=== PATIENT | female | born 1990 | race Caucasian/White ===

== ENCOUNTER 2022-04-24 10:37 | Outpatient (CLI) | payer BC, SELFPAY ==
--- NOTE | 2022-04-24 10:45 | CRLHL7_ITS ---
For Patients: As a result of the Cures Act, medical imaging exams and procedure reports are released immediately into your electronic medical record. You may view this report before your referring provider. If you have questions, please contact your health care provider. DIGITAL DIAGNOSTIC LEFT MAMMOGRAM USING TOMOSYNTHESIS AND COMPUTER-AIDED DETECTION LEFT BREAST ULTRASOUND CLINICAL HISTORY: LEFT breast lump. COMPARISON: None. TECHNIQUE: Digital LEFT mammogram in four projections. Tomosynthesis and CAD utilized. Real-time ultrasound imaging of LEFT breast with imaging documentation. BREAST COMPOSITION: The breast is extremely dense, which lowers the sensitivity of mammography. FINDINGS: 3D implant-displaced CC/MLO LEFT breast mammogram images submitted along with 2D non implant-displaced LEFT breast mammogram images. Nodular density is present adjacent to the LEFT nipple corresponding to the area of concern. The LEFT breast implant is intact. No adenopathy or architectural distortion. No suspicious calcifications. Targeted LEFT breast ultrasound performed at 3 o`clock 1 cm from the nipple. In this location there is a simple circumscribed anechoic cyst with increased through-transmission measuring 0.7 x 0.5 x 0.7 cm. IMPRESSION: 7 millimeters simple cyst LEFT breast 3 o`clock 1 cm from the nipple. No evidence of malignancy. RECOMMENDATIONS: Clinical follow-up. Age appropriate screening mammography. Results and recommendations discussed with the patient. BI-RADS Category 2: Benign A lay language report of this examination will be provided to the patient. Dictated by Catrachito Rao MD @ 04/24/2022 12:05:58 PM arj/Dictated by: Catrachito Rao MD @ 04/24/2022 12:05:00 PM (Electronically Signed)
--- NOTE | 2022-04-24 11:15 | CRLHL7_ITS ---
For Patients: As a result of the Cures Act, medical imaging exams and procedure reports are released immediately into your electronic medical record. You may view this report before your referring provider. If you have questions, please contact your health care provider. PLEASE SEE DIGITAL DIAGNOSTIC LEFT MAMMOGRAM PERFORMED SAME DAY CRL:rose rose/Dictated by: Catrachito Rao MD @ 04/24/2022 12:06:00 PM (Electronically Signed)
== END 2022-04-24 10:38 | disposition home or self-care (01) ==
LOC: MAMMO 10:37
PROVIDERS: Visit Provider Physician Assistant
DX: N63.20 Unspecified lump in the left breast, unspecified quadrant (principal); N60.02 Solitary cyst of left breast
CPT/HCPCS: 76642; 77065; 77067; G0279

== ENCOUNTER 2024-02-10 13:02 | Outpatient (CLI) | payer BC, SELFPAY ==
--- NOTE | 2024-02-10 13:00 | CRLHL7_ITS ---
For Patients: As a result of the Century Cures Act, medical imaging exams and procedure reports are released immediately into your electronic medical record. You may view this report before your referring provider. If you have questions, please contact your health care provider. INDICATION: First trimester scan, establish dates. COMPARISON: None. TECHNIQUE: Real-time lockwood-scale imaging of the pelvis was performed. FINDINGS: Sonographic imaging demonstrates a single living intrauterine gestation. The embryo demonstrates a regular cardiac rate measuring 185 beats per minute. The embryo`s crown-rump length measurement of 2.1 cm corresponds to a gestational age of 8 weeks 5 days with a sonographic due date of 09/16/2024. There is a normal-appearing yolk sac. There are no gross abnormalities noted within the embryo at this early state of development. The gestational sac has a normal appearance. There is a 2.0 x 1.5 x 1.0 cm left-sided perigestational hemorrhage. The amount of fluid within the sac appears appropriate for gestational age. The cervix is closed. The myometrium appears normal. The ovaries are of normal size. Corpus luteal cyst on the right. There are no suspicious fluid collections noted in the cul-de-sac. IMPRESSION: Single living intrauterine with sonographic gestational age 8 weeks 5 days and sonographic due date 09/16/2024. Left-sided subchorionic hemorrhage measures 2.0 x 1.5 x 1.0 cm. Dictated by Catrachito Rao MD @ 02/11/2024 12:24:02 PM (Electronically Signed)
== END 2024-02-10 13:03 | disposition home or self-care (01) ==
LOC: US 13:02
PROVIDERS: PCP Family Medicine; Visit Provider Physician Assistant
DX: Z34.91 Encounter for supervision of normal pregnancy, unspecified, first trimester (principal); O20.9 Hemorrhage in early pregnancy, unspecified; Z3A.08 8 weeks gestation of pregnancy
CPT/HCPCS: 76817

== ENCOUNTER 2024-02-10 13:11 | Outpatient (CLI) | payer BC, SELFPAY ==
[2024-02-10 21:26] LABS: Chlamydia DNA Amplified* NOT DETECTED (No Detected); GC DNA Amplified* NOT DETECTED (No Detected)
[2024-02-13 16:28] LABS: HPV Source Cervical; HPV, High Risk by TMA Not Detected
== END 2024-02-10 13:12 | disposition home or self-care (01) ==
PROVIDERS: PCP Family Medicine; Visit Provider Obstetrics & Gynecology
DX: Z34.91 Encounter for supervision of normal pregnancy, unspecified, first trimester (principal); Z12.4 Encounter for screening for malignant neoplasm of cervix; Z3A.08 8 weeks gestation of pregnancy
CPT/HCPCS: 83021; 86592; 86703; 86704; 86706; 86762; 86787; 86803; 86850; 86900; 86901; 87086; 87340; 87491; 87591; 87624; 87625; 88141; 88142

== ENCOUNTER 2024-04-30 12:58 | Outpatient (CLI) | payer BC, SELFPAY ==
--- NOTE | 2024-04-30 13:00 | CRLHL7_ITS ---
For Patients: As a result of the 21st Century Cures Act, medical imaging exams and procedure reports are released immediately into your electronic medical record. You may view this report before your referring provider. If you have questions, please contact your health care provider. OB ULTRASOUND SURVEY LMP: 12/13/2023. GUS by LMP: 09/18/2024. GA: 19 w, 6 d. INDICATION: Supervision of normal . TECHNIQUE: Real time lockwood scale imaging of the fetus was performed. Evaluate anatomy. Transabdominal and transvaginal. position: Multiple positions. Cervix: Visualized. Technique: Transabdominal and Transvaginal. Length of closed cervix: 5.0 cm. Placenta/cord: Anterior. Technique: Transabdominal. Transvaginal. Placenta tip to internal OS: 1.2 cm. Umbilical Cord: 3-vessel cord. Placenta insertion: Eccentric. Amniotic Fluid: 4.4 cm SDP (greater than/equal to: 2- less than 8 cm). SURVEY: Observed Structures. Calvarium/Spine: Cerebellum: 2.0 cm, 20 w 4 d. Cisterna Magna: 3.6 mm. Nuchal Fold: 4.4 mm. Lateral Ventricle: 5.3 mm. CSP: Yes. Midline Falx: Yes. Choroid Plexus: Yes. Spine: Yes. Abdomen: Stomach: Yes. Abd Cord Insertion: Yes. Urinary Bladder: Yes. Kidneys: Yes. Diaphragm: Yes. Face: Nose/lips: Yes. Orbital view: Yes. Profile: Yes. Limbs: Upper Extremities: Yes. Lower Extremities: Yes. Hands: Yes. Feet: Yes. Vascular: 4-Chamber Heart: Yes. LVOT: Yes. RVOT: Yes. 3VV: Yes. 3VTV: Yes. BPD: 4.4 cm. 19 w, 2 d, 27 percent. HC: 17.0 cm. 19 w, 4 d, 30 percent. AC: 15.3 cm. 20 w, 3 d, 65 percent. FL: 3.2 cm. 20 w, 0 d, 49 percent. FL/AC ratio: 21.10 percent. HC/AC ratio: 1.11. heart rate: 149 bpm. age by this US: 20 w, 0 d. GUS by this US: 09/17/2024. EFW: 336.41 g. Weight: 12 oz. Percentile by GUS: 64 percent. IMPRESSION: 1. Concordant of clinical and sonographic dating. 2. Normal anatomic survey. 3. Anterior placental edge located 1.2 cm from the internal cervical os, confirmed with transvaginal imaging. Possible circumvallate placenta at the inferior aspect. Third trimester follow-up recommended at 28 weeks. Catrachito Rao M.D. Diagnostic Radiologist [email or web address] [employer] [email or web address] DSM/rose jj/Dictated by: Catrachito Rao MD @ 04/30/2024 3:32:00 PM (Electronically Signed)
== END 2024-04-30 12:59 | disposition home or self-care (01) ==
LOC: US 12:58
PROVIDERS: PCP Family Medicine; Visit Provider Obstetrics & Gynecology
DX: Z34.92 Encounter for supervision of normal pregnancy, unspecified, second trimester (principal); Z3A.19 19 weeks gestation of pregnancy
CPT/HCPCS: 76805; 76817

== ENCOUNTER 2024-07-01 12:21 | Outpatient (CLI) | payer BC, SELFPAY ==
--- NOTE | 2024-07-01 12:15 | CRLHL7_ITS ---
For Patients: As a result of the Century Cures Act, medical imaging exams and procedure reports are released immediately into your electronic medical record. You may view this report before your referring provider. If you have questions, please contact your health care provider. OB ULTRASOUND GUS by LMP or US: 09/18/2024. GA: 28 w, 5 d. Single. Comparison: Ultrasound 04/30/2024, 02/10/2024. INDICATION: Follow-up. TECHNIQUE: Real time grayscale imaging of the fetus was performed. Transabdominal. CERVIX: Visualized. POSITIONING: Breech. AMNIOTIC FLUID: 5.3 cm. SDP (N: greater than 2 x 1 cm) PLACENTA: Technique: Transabdominal. PLACENTA POSITION: Anterior. DOPPLER: heart rate: 135 bpm. BIOMETRY: BPD: 7 cm. 28 w, 1 d, 22 percent. HC: 26.1 cm. 28 w, 2 d, 11 percent. AC: 24.8 cm. 29 w, 0 d, 53 percent. FL: 5.5 cm. 29 w, 0 d, 41 percent. FL/AC ratio: 22.10 percent. HC/AC ratio: 1.05. EFW: 1297 g. Weight: 2 lbs, 14 oz. age by this US: 28 w, 6 d. GUS by this US: 09/17/2024. Percentile by GUS: 43 percent. IMPRESSION: 1. Sonographic gestational age 28 weeks 6 days with sonographic due date 09/17/2024. Good correlation with dates. Normal interval growth. 2. Estimated weight 43rd percentile. Abdominal circumference 53rd percentile. 3. Anterior placenta. Placental edge, 6.8 cm from the internal cervical os. Placental morphology appears normal without evidence of circumvallate. Catrachito Rao M.D. Diagnostic Radiologist [email or web address] CAROLYN/rose rose/Dictated by: Catrachito Rao MD @ 07/02/2024 8:11:00 AM (Electronically Signed)
== END 2024-07-01 12:22 | disposition home or self-care (01) ==
LOC: US 12:22
PROVIDERS: PCP Family Medicine; Visit Provider Obstetrics & Gynecology
DX: O35.03X0 Maternal care for (suspected) central nervous system malformation or damage in fetus, choroid plexus cysts, not applicable or unspecified (principal); Z3A.28 28 weeks gestation of pregnancy
CPT/HCPCS: 76816

== ENCOUNTER 2024-07-01 12:27 | Outpatient (CLI) | payer BC, SELFPAY | END 2024-07-01 12:28 | disposition home or self-care (01) | LOC: NFLDREF 07-07 01:55 | PROVIDERS: PCP Family Medicine; Referring Provider Family Medicine; Visit Provider Obstetrics & Gynecology | DX: Z34.83 Encounter for supervision of other normal pregnancy, third trimester (principal) | CPT/HCPCS: 86592 ==

== ENCOUNTER 2024-08-19 15:00 | Outpatient (CLI) | payer BC, SELFPAY ==
[2024-08-20 13:27] LABS: Strep B DNA Probe Negative (Negative)
[2024-08-20 13:38] LABS: Strep B Susceptibility Needed? No
== END 2024-08-19 15:01 | disposition home or self-care (01) ==
LOC: NFLDREF 15:01
PROVIDERS: PCP Family Medicine; Visit Provider Obstetrics & Gynecology
DX: Z34.93 Encounter for supervision of normal pregnancy, unspecified, third trimester (principal); Z3A.35 35 weeks gestation of pregnancy
CPT/HCPCS: 87081; 87653

== ENCOUNTER 2024-08-31 15:00 | Outpatient (CLI) | payer BC, SELFPAY ==
--- NOTE | 2024-08-31 14:45 | US_ITS ---
Patient: OMAR ORELLANA Facility:?[facility] RIS Patient ID:?[id number] Site Patient ID:?[id number]. Site :?[id number] Study:?US-OB Pelvis OB F/U GROWTH-08/31/2024 4:58:09 PM Ordering Physician:ADALI ALEGRE M.D. Final Report: OB ULTRASOUND LMP: 12/13/2023. GUS by LMP: 09/18/2024. GA: 37 w, 3 d. Single. INDICATION: Size-date discrepancy. TECHNIQUE: Real time grayscale imaging of the fetus was performed. Transabdominal. CERVIX: Not visualized. POSITIONING: Vertex. AMNIOTIC FLUID: 14.1 cm FAYE. 6.3 cm. SDP (N: greater than 2 x 1 cm) PLACENTA: Technique: Transabdominal. PLACENTA POSITION: Anterior. DOPPLER: heart rate: 134 bpm. BIOMETRY: BPD: 8.4 cm. 33 w, 5 d, >3 percent. HC: 30.8 cm. 34 w, 3 d, <3 percent. AC: 33.2 cm. 37 w, 0 d, 55 percent. FL: 7.1 cm. 36 w, 2 d, 21 percent. FL/AC ratio: 21.33 percent. HC/AC ratio: 0.93. EFW: 2864 g. Weight: 6 lbs, 5 oz. age by this US: 35 w, 3 d. GUS by this US: 10/02/2024. Percentile by GUS: 26.0 percent. IMPRESSION: 1. Sonographic gestational age 35 weeks 3 days and sonographic due date 10/02/2024. Sonographic age is 2 weeks behind the clinical age. 2. Estimated weight 26th percentile. Abdominal circumference 55th percentile. BPD and HC are both less than 3rd percentile. Catrachito Rao M.D. Diagnostic Radiologist [email or web address] CAROLYN/rose D& Transcribed: 11:54 a.mJavi rose/Dictated by: Catrachito Rao MD @ 09/01/2024 7:34:00 AM (Electronic Signature)
--- NOTE | 2024-09-12 16:50 | PC.NURSE ---
This RN met with patient and family in ED waiting room as she had arrived for her elective IOL that the Center was unaware of. Explained to patient that we have her on the schedule for tomorrow, September 13, and after investigating in her saw that Dr. Barnes had informed her to come in [facility] for cervical ripening. If this was communicated with the Center it was not documented in CWS or the schedule book. This RN also explained to patient that we do not currently have availability to start an elective IOL regardless. Patient understandably and visibly upset. This RN apologized and encouraged patient to call tomorrow morning at 0500. Gently reminded patient though that she might still be put off due to the business of the unit and the nature of her induction. This RN also asked triage type questions - patient declines labor symptoms, any leaking of fluids or vaginal bleeding, and endorses movement. Encouraged to call if she has any concerns about any of those things. Patient states understanding. Updated Dr. Anthony Martin on situation who is the MD facility environmental technician.
== END 2024-08-31 15:01 | disposition home or self-care (01) ==
LOC: US 15:00
PROVIDERS: PCP Family Medicine; Visit Provider Obstetrics & Gynecology
DX: O35.03X0 Maternal care for (suspected) central nervous system malformation or damage in fetus, choroid plexus cysts, not applicable or unspecified (principal); O26.843 Uterine size-date discrepancy, third trimester; Z3A.37 37 weeks gestation of pregnancy
CPT/HCPCS: 76816

== ENCOUNTER 2024-09-15 11:05 | Outpatient (CLI) | payer BC, SELFPAY ==
[2024-09-15 11:53] VITALS: PULSE 64; RESP 18; TEMP 36.2; O2SAT 99
[2024-09-15 11:58] VITALS: PULSE 71; O2SAT 99
[2024-09-15 12:04] VITALS: BP 101/60; PULSE 69
[2024-09-15 12:37] LABS: Amnisure Rom* Negative
[2024-09-15 14:20] VITALS: RESP 18; TEMP 36.2
--- NOTE | 2024-09-15 14:34 | P.OBLDTN_ITS ---
OB - Triage/Final Diagnosis Visit Information Narrative: The patient is a 34 year old 2 para 1 at 39 weeks gestation by LMP, who presents for a planned elective induction. 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 Betsey was called in for elective induction after being postponed several days. Unfortunately, since arrival several acute matters have, on the floor. We unfortunately do not have appropriate staffing to safely proceed with an elective induction of labor. I presented at the bedside to discuss with gregg tamez. She notes ongoing persistent [place] contractions, that are regular and occur every few minutes. She notes these are not particularly painful but very frequent. Denies any vaginal bleeding or leaking of fluid. Endorses active movement. Though understandably disappointed, she expressed understanding. She would be agreeable to cervical exam and membrane sweeping. Verbal consent was obtained for membrane sweep after discussion of risk/benefits and alternatives. On exam, patient is 1.5/50/-2 with head very well applied to the cervix but posterior location of the cervix. I could hook the cervix towards me, then is able to complete a membrane sweep. This was technically difficult due to posterior cervix. Patient tolerated well, scant bloody show noted on glove. We did proceed to a nonstress test following this, which remains reactive. Baseline is 110-115 beats per minute, moderate variability, several qualifying 15 x 15 accelerations seen. status is overall reassuring. Discussed that we can certainly try to proceed with her elective induction morning again or in the coming days despite holiday weekend. Patient will consider those options further. Strict return precautions reinforced regular/painful uterine contractions, vaginal bleeding, leaking of fluid or decreased movement. Evaluation Laboratory results: Laboratory Tests 09/15/24 Range/Units 12:07 Membrane Rupture Negative Vital signs: Vital Signs - 24 hr 09/15/24 11:53 09/15/24 11:53 09/15/24 11:53 Temperature 97.2 F L Pulse Rate Respiratory Rate 18 Blood Pressure Pulse Oximetry 99 09/15/24 11:58 09/15/24 12:04 09/15/24 12:04 Temperature Pulse Rate 69 Respiratory Rate Blood Pressure 101/60 Pulse Oximetry 99 09/15/24 14:20 09/15/24 14:20 Temperature 97.2 F L Pulse Rate Respiratory Rate 18 Blood Pressure Pulse Oximetry
--- NOTE | 2024-09-15 17:34 | PC.OBNST ---
NST Note NST Note Start: 09/15/24 11:59 Freq: ONCE Status: Active Protocol: Document 09/15/24 17:31 MMB (Rec: 09/15/24 17:34 MMB [id number]) NST Note 2 Para (# of births) 1 EDC 09/18/24 Gestational Age In 39 Weeks & 4 Days Weeks & Days Patient Presented Leaking fluid with Complaint(s) of Reactive Yes Appropriate for Yes Gestational Age GEOVANNA Alba RN Date 09/15/24 Reactive Yes Appropriate for Yes Gestational Age GEOVANNA Chambers RN Date 09/15/24 OB NST charge Yes Complete NST Note Yes via Write Note The provider's electronic signature indicates the NST is reactive/appropriate for gestational age. *Note to provider: If an addendum is required, open the patient's chart and click on the note under the Nurse/Allied Health tab.
== END 2024-09-15 15:20 | disposition home or self-care (01) ==
LOC: OB OUT 11:51 → OB 11:51
PROVIDERS: PCP Family Medicine; Visit Provider Obstetrics & Gynecology
DX: O47.1 False labor at or after 37 completed weeks of gestation (principal); Z3A.39 39 weeks gestation of pregnancy
CPT/HCPCS: 59025; 84112; G0463

== ENCOUNTER 2024-09-18 16:38 | Inpatient (IN) | payer BC, SELFPAY ==
[2024-09-18 16:58] VITALS: BMI 24.5
[2024-09-18 17:04] VITALS: BP 106/57; PULSE 70
--- NOTE | 2024-09-18 17:40 | W.PM.LDBA ---
Subjective History of Present Illness Date Seen: 09/18/24 Narrative: Patient is being admitted to Labor and Delivery for elective induction of labor. She is a 34 year old at 40 0/7 weeks gestation. Her full history and physical was dictated by on []. Please see this for details. [] Specific Issues/Plans [id number] Partner: Duane Daughter: Krys Baby: Kong H&P: 08/31/2024 # Final US findings on anatomy here: Anterior placental edge located 1.2 cm from the internal cervical os, confirmed with transvaginal imaging. Possible circumvallate placenta at the inferior aspect. [place] test: low risk NIPT, male, negative aneuploidy screen Referred to [facility] 04/30: No choroid plexus cysts, no previa, intrauterine synechiae; no further follow up recommended by [facility] # History of vacuum-assisted vaginal delivery for indication # Asthma, exercise- and allergy-induced. Uses inhaler PRN # Vaping daily. Nicotine patch given 02/09 Imagin02/10/24: GUS c/w LMP. 2 cm subchorionic hemorrhages 05/05/24: Level 2. cephalic, anterior placenta without previa, 3 vessel cord, MVP 4.1 cm, EFW 68%, AC 70%, normal anatomy without choroid plexus cysts, uterine synechia in low right uterus 07/01/24: Breech, EFW 43%, AC 53%, anterior placenta without previa, no evidence circumvallate placenta. 08/31/2024: Cephalic, FAYE 14.1, SD P 6.3 cm, EFW 26%, BPD less than 3%, HC less than 3%, AC 55%, FL 21%. Vaccinations: COVID: given 03/08/2024 Flu: given 03/08/2024 Tdap: 08/06/24 GBS negative 32 week mental health: VITALY and PHQ = 0 Last pap: [Only high-risk abnormal pap results in problem list] OB Exam Physical Exam Vital signs: Pulse BP 70 106/57 L 09/18/24 17:04 09/18/24 17:04
--- NOTE | 2024-09-18 17:43 | PM.OBHPLI ---
OB - H&P: HPI Labor/Induction History of Present Illness Date Seen: 09/18/24 Chief Complaint: The patient is a 34 year old 2 para 1001 at 40 0/7 weeks gestation by LMP, who presents for elective induction of labor. Her induction had been rescheduled from last week due to staffing and room availability issues as the Center census was high. She is happy to be here to start the induction. Chief complaint: induction : 2 Para: 1 Date of last menstrual period: 12/13/23 Estimated date of delivery: 09/18/24 Gestational age based on last menstrual period: 40 Indications for induction: other (elective) Narrative: Betsey Do is a 34 year old female. She currently feels well. She denies contractions, vaginal bleeding or leakage of fluid. Her last labor was induced with Cervidil for cervical ripening. Specific Issues/Plans [id number] Partner: Duane Daughter: Krys Baby: Kong H&P: 08/31/2024 # Final US findings on anatomy here: Anterior placental edge located 1.2 cm from the internal cervical os, confirmed with transvaginal imaging. Possible circumvallate placenta at the inferior aspect. [place] test: low risk NIPT, male, negative aneuploidy screen Referred to [facility] 04/30: No choroid plexus cysts, no previa, intrauterine synechiae; no further follow up recommended by [facility] # History of vacuum-assisted vaginal delivery for indication # Asthma, exercise- and allergy-induced. Uses inhaler PRN # Vaping daily. Nicotine patch given 02/09 Imagin02/10/24: GUS c/w LMP. 2 cm subchorionic hemorrhages 05/05/24: Level 2. cephalic, anterior placenta without previa, 3 vessel cord, MVP 4.1 cm, EFW 68%, AC 70%, normal anatomy without choroid plexus cysts, uterine synechia in low right uterus 07/01/24: Breech, EFW 43%, AC 53%, anterior placenta without previa, no evidence circumvallate placenta. 08/31/2024: Cephalic, FAYE 14.1, SD P 6.3 cm, EFW 26%, BPD less than 3%, HC less than 3%, AC 55%, FL 21%. Vaccinations: COVID: given 03/08/2024 Flu: given 03/08/2024 Tdap: 08/06/24 GBS negative 32 week mental health: VITALY and PHQ = 0 Last pap: [Only high-risk abnormal pap results in problem list] History of Present Dating criteria: based on LMP care: good care Ultrasounds: normal 1st trimester US and normal mid trimester US Medical complications: none Labs Blood type: O (+) positive Rubella: immune RPR/VDLR: nonreactive GBS status: negative HBsAG: negative Review of Systems Status of ROS: Reports: 10 or more systems reviewed and unremarkable except as noted in History and below Meds Home Medications and Allergies Home Medications ?Medication ?Instructions ?Recorded ?Confirmed ?Type albuterol sulfate 90 mcg/actuation 2 inh inhalation PRN 02/27/23 09/09/24 History aerosol inhaler cephalexin 250 mg capsule mg PO .Once as needed PRN 02/27/23 09/09/24 History docosahexaenoic acid 200 mg 100 mg PO 02/10/24 09/09/24 History capsule ( DHA) Allergies Allergy/AdvReac Type Severity Reaction Status Date / Time dog dander Allergy Intermediate rash and Verified 09/18/24 16:53 asthma grass pollen Allergy Mild Verified 09/18/24 16:54 tree and shrub pollen Allergy Mild Verified 09/18/24 16:54 [Cat hair extract] Allergy Intermediate asthma and Uncoded 09/09/24 09:03 rash seasonal Allergy Unknown congestion Uncoded 09/09/24 09:03 OB - H&P: Exam Physical Exam: Vital signs: Pulse BP 70 106/57 L 09/18/24 17:04 09/18/24 17:04 Constitutional: Constitutional: no acute distress Routine HEENT Exam: Head: Present normal inspection Routine Respiratory Exam: Respiratory: Present CTA bilaterally; Absent crackles, rhonchi or wheezes Routine Cardiovascular Exam: Cardiovascular: RRR Routine Abdominal Exam: Abdominal: Present soft; Absent tenderness Routine Exam: External: Present normal external exam Comments: Cervix posterior, moderate consistency, 3cm dilated, 70% effaced, -2 station Detailed Labor and Delivery Exam: Patient Gravid: yes Dilation (cm): 3 Effacement (%): 70 Cervix position: posterior Consistency: medium Cervical ripeness score: 6 Fetus (Single): Station: -2 Amniotic Membrane Status: intact Heart Rate Baseline: 120 Monitor Accelerations: Present Monitor Decelerations: None Ordnance Engineering Technician Variability: Moderate (6-25) Routine Extremities Exam: Extremities: Present normal inspection; Absent calf tenderness or pedal edema Routine Psychiatric Exam: Present normal affect OB - Problem Based A/P Additional Plan (1) Encounter for induction of labor: Status: Acute Delivery/Labor/Induction Plan Plan: induction Induction method: per misoprostol protocol
[2024-09-18 18:06] LABS: Hematocrit 34.6 % (33.0-51.0); Hemoglobin* 11.2 gm/dL (12.0-16.0); Immature Granulocytes Abs Auto 0.01 K/uL (0.00-0.30); Immature Granulocytes Pct Auto 0.1 %; Mean Corpuscular HGB Conc 32 gm/dL (32-36); Mean Corpuscular Hemoglobin 27 pg (26-34); Mean Corpuscular Volume 85 fL (80-100); RDW Coefficient of Variation % 13.3 % (11.5-15.5); Red Blood Count 4.09 m/uL (4.00-5.20); White Blood Count* 7.88 K/uL (4.50-11.00)
[2024-09-18 18:07] LABS: Lymphocytes Absolute Auto 0.90 K/uL (0.90-2.90); Slide Review Reflex No
[2024-09-18 20:27] VITALS: BP 108/63; PULSE 60
[2024-09-18 23:51] VITALS: BP 126/72; PULSE 60; TEMP 36.7
[2024-09-18] MEDS: ONDANSETRON 2 MG/ML inj 4 MG IV (23:58)
[2024-09-19] VITALS (46 sets, daily range): BP systolic 94–125; BP diastolic 50–72; PULSE 2–73; RESP 16–17; TEMP 36.3–37; O2SAT 79–100
[2024-09-19] MEDS: LACTATED RINGERS 1000 ML 1,000 ML 125 ML IV ×2 (00:15→05:13)
[2024-09-19] MEDS: BUPIVACAINE 0.25% PF 10 ML 10 ML ML EPIDURAL (00:58)
[2024-09-19] MEDS: ROPIVACAINE 0.2% 100 ml 100 ML 12 MG EPIDURAL (00:58)
[2024-09-19] MEDS: LACTATED RINGERS 1000 ML 1,000 ML 925 ML IV (01:20)
--- NOTE | 2024-09-19 01:21 | P.ANBPRC_ITS ---
[facility] Medical History choroid plexus cysts affecting antepartum care of mother ?O35.03X0 - Maternal care for (suspected) central nervous system malformation or damage in fetus, choroid plexus cysts, not applicable or unspecified (ICD- 10) Left breast lump ?N63.20 - Unspecified lump in the left breast, unspecified quadrant (ICD-10) Recurrent UTI ?N39.0 - Urinary tract infection, site not specified (ICD-10) Allergies ?T78.40XA - Allergy, unspecified, initial encounter (ICD-10) Surgical History History of breast augmentation (03/2017) ?Z98.82 - Breast implant status (ICD-10) Vacuum-assisted vaginal delivery (07/06/21) ?Z37.9 - Outcome of delivery, unspecified (ICD-10) Family History Other Adopted Social History 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 . Nonsmoker. Family history is unknown, patient is adopted. What is your current living situation?: I presently have a place to live Problems where you live: no known problems In the past 12 months, utilities in danger of being shut off: no In past 12 months, lack of transportation kept you from medical appts, meetings, work, or getting things needed for daily living: no How hard is it for you to pay for the very basics like food, housing, medical care, and heating: not very hard In the past 12 mos, have been you worried that your food would run out before you had money to buy more?: never true In the past 12 mos, the food you bought just didn't last and you didn't have money to buy more?: never true Smoking Status: Former smoker How often does anyone, including family, friends and others, physically hurt you : never How often does anyone, including family, friends and others, insult or talk down to you: rarely How often does anyone, including family, friends and others, threaten you with harm: never How often does anyone, including family, friends and others, scream or curse at you: rarely Health Related Social Needs: Other personal risk factors, not elsewhere classified (Z91.89) Meds Home Medications and Allergies Home Medications ?Medication ?Instructions ?Recorded ?Confirmed ?Type albuterol sulfate 90 mcg/actuation 2 inh inhalation .p rn PRN 02/27/23 09/18/24 History aerosol inhaler cephalexin 250 mg capsule 250 mg PO .Once as needed PA N 02/27/23 09/18/24 History docosahexaenoic acid 200 mg 100 mg PO DAILY 02/10/24 0 09/18/24 History capsule ( DHA) Allergies Allergy/AdvReac Type Severity Reaction Status Date / Time dog dander Allergy Intermediate rash and Verified 09/18/24 16:53 asthma grass pollen Allergy Mild Verified 09/18/24 16:54 tree and shrub pollen Allergy Mild Verified 09/18/24 16:54 [Cat hair extract] Allergy Intermediate asthma and Uncoded 09/09/24 09:03 rash seasonal Allergy Unknown congestion Uncoded 09/09/24 09:03 Results Labs Labs: Laboratory Results - last 24 hr 09/18/24 17:53 WBC 7.88 RBC 4.09 Hgb 11.2 L Hct 34.6 MCV 85 MCH 27 MCHC 32 RDW Coeff of [place] 13.3 Plt Count 205 Neut % (Auto) 80.5 H Lymph % (Auto) 11.9 L [place] % (Auto) 6.0 Eos % (Auto) 1.1 Baso % (Auto) 0.4 Neut # (Auto) 6.30 Lymph # (Auto) 0.90 [place] # (Auto) 0.50 Eos # (Auto) 0.09 Baso # (Auto) 0.03 Abs Immat Gran (auto) 0.01 Imm/Tot Granulo (auto) 0.1 Blood Type O Positive Antibody Screen NEGATIVE Vital Signs Vital Signs: Last Vital Signs Pulse 55 L 09/19/24 01:14 BP 103/58 L 09/19/24 01:14 Pulse Ox 100 09/19/24 01:03 Weight: 66.905 kg Height: 165.1 cm Anesthesia Procedures Epidural Insertion Patient Location: OB Start Time: 00:40 Stop Time: 01:21 Start Date: 09/19/24 Stop Date: 09/19/24 Reason for Block: procedure for pain Patient Position: sitting Performed By: Mogler,Raghavendra K Preanesthetic Checklist: IV checked, risks and benefits discussed, monitors and equipment checked, pre-op evaluation, timeout performed and anesthesia consent Prep: chlorhexidine gluconate Monitoring: blood pressure monitoring, continuous pulse oximetry and heart rate Approach: midline Vertebral Space: lumbar (1-5) Epidural Technique: MASSIMO saline Needle Type: Tuohy needle Injection Technique: continuous catheter Needle gauge: 17 Needle Length (cm): 10 cm Needle Insertion Depth (cm): 6 Catheter Gauge: 19 Catheter Type: multi-orifice Catheter at skin depth (cm): 12 Test Dose Result: negative and lidocaine 1.5% with epinephrine 1 to 200,000
[2024-09-19] MEDS: OXYTOCIN 30 unit/500 ML in NS 30 UNIT/500 ML BAG 300 UNIT IVPB (06:56)
--- NOTE | 2024-09-19 07:22 | W.PM.OBVAGDE ---
OB Procedure Vag Delivery Mother Details Mother Details: The patient is a 34 year-old, 2, Para 1, admitted on 09/18/24 at 40 weeks gestation. : 2 Para: 1 Weeks Gestation: 40 Admission Date: 09/18/24 Additional Details Amniotic Membrane Status: intact Amniotic Membrane Rupture Date: 09/19/24 Amniotic Membrane Rupture Time: 05:28 Amniotic Membrane Fluid Description: Clear Analgesia/Anesthesia Type: Epidural Waterbirth: No [place]: No Intrapartal Events: Labor Induction Induction Method: per misoprostol protocol (1 dose 25 mcg) Delivery augmentation: rupture of membranes Labor Onset: 00:30 (09/19/2024) Complete: 05:29 Pushin:42 Heart: heart tones during second stage were 130 bpm baseline with variable and late decelerations, category 2. Delivery Details Delivery Date: 09/19/24 Delivery Time: 06:53 Route of delivery: Infant Gender: Male Viability: Alive; Heart Rate Present Position at Delivery: OA (with left nuchal arm) Delivery Details: Delivered via spontaneous vaginal delivery. was placed on maternal abdomen.? Cord was clamped and cut after a 30-60 second delay. Nose and mouth were bulb suctioned.? weight pending. 1 Minute Interval Total Score: 9 5 Minute Interval Total Score: 9 Additional Details Shoulder Dystocia: No Placenta Delivery Time: 06:58 Placental Delivery Description: Spontaneous Delivery repair: Chromic Procedure Done: Global Blood Loss: 75 Laceration: Perineal - 2nd Degree Episiotomy Description: None Blood Loss Measurement Type: QBL Bakri Used: No Sponge/Need Count Correct: Yes Cord Vessel Description: 3 Vessels Event Summary Status: Mother and infant were stable after delivery. Disposition: floor
--- NOTE | 2024-09-19 11:33 | PM.ANPOST ---
Post Anesthesia Note Post Anesthesia Note Patient seen: Inpatient Respiratory Status: adequate Cardiovascular Status: adequate Mental Status: baseline Pain: adequate Temp: baseline Anesthetic awareness: N/A Complications: none Follow care: none
[2024-09-19] MEDS: IBUPROFEN 600 MG TABLET PO ×2 (13:35→22:16)
[2024-09-19] MEDS: ACETAMINOPHEN 500 MG TABLET 1000 MG PO (16:33)
[2024-09-19] MEDS: DOCUSATE SODIUM 100 MG CAPSULE PO (22:17)
[2024-09-20 02:28] VITALS: BP 97/63; PULSE 64; RESP 16; TEMP 36.8; O2SAT 97
[2024-09-20 06:47] LABS: Hemoglobin* 9.9 gm/dL (12.0-16.0)
--- NOTE | 2024-09-20 08:04 | P.DS_ITS ---
DS: Providers Provider Time Seen by Provider: 08:04 Date Seen: 09/20/24 Date of admission: 09/18/24 16:38 Primary care physician: Rashmi Drummond MD Admitting Clinician: Suzanne Forrester MD Consults: 09/18/24 18:12 Consult to Bsa Officer [CONS] Routine Comment: Reason for Consult:: Social Service Consult Attending Physician on discharge: Brooke Larson CNM Date of Discharge: 09/20/24 DS: Diagnosis Discharge Diagnosis (1) care and examination immediately after delivery: Status: Acute (2) Vaginal delivery: Status: Acute (3) Lactating mother: Status: Acute (4) Anemia due to acute blood loss: Status: Acute Exam Narrative: Exam Narrative: GENERAL APPEARANCE:? normal affect, alert, no distress MOOD:? appropriate CHEST:? clear to auscultation HEART:? regular rate and rhythm ABDOMEN:? soft, non-tender the uterine fundus is At Umbilicus, Midline and is a ppropriate for the stage of recovery. PERINEUM:? mild edema of the perineum, there is a Perineal Laceration, that is healing well. EXTREMITIES:? normal and no edema Const: Vital Signs, click to edit/add: Vital Signs - 24 hr 09/19/24 08:06 09/19/24 08:06 09/19/24 08:21 Temperature Pulse Rate 55 L 52 L Pulse Rate [Pulse Oximeter] Respiratory Rate 16 Blood Pressure 103/55 L 103/55 L Blood Pressure [Le ft Arm] [facility] 08:23 09/19/24 08:36 09/19/24 08:36 Temperature Pulse Rate 57 L Pulse Rate [Pulse Oximeter] Respiratory Rate 16 16 Blood Pressure 109/55 L Blood Pressure [Le ft Arm] Pulse Oximetry [facility] 08:51 09/19/24 08:51 09/19/24 09:06 Temperature Pulse Rate 61 55 L Pulse Rate [Pulse Oximeter] Respiratory Rate 16 Blood Pressure 99/58 L 102/62 Blood Pressure [Le ft Arm] Pulse Oximetry [facility] 09:06 09/19/24 09:21 09/19/24 13:37 Temperature 98.6 F Pulse Rate 71 Pulse Rate [Pulse Oximeter] 57 L Respiratory Rate 16 16 Blood Pressure 100/58 L Blood Pressure [Le ft Arm] 112/72 Pulse Oximetry 97 Oxygen Delivery Me thod Room Air 09/19/24 17:21 09/19/24 22:04 09/20/24 02:28 Temperature 97.4 F L 98.0 F 98.2 F Pulse Rate Pulse Rate [Pulse Oximeter] 56 L 59 L 64 Respiratory Rate 17 16 16 Blood Pressure Blood Pressure [Le ft Arm] 102/67 102/65 97/63 Pulse Oximetry 99 97 97 Oxygen Delivery Me thod Room Air Room Air Room Air Documenting provider has reviewed patient's vital signs: yes Common normals: no apparent distress, oriented x3, healthy appearing, alert and well nourished Exam limitations: altered mental status Neuro: Common normals: oriented x3 Sensorium/orientation: alert OB - DS: Summary Hospital Course Hospital Course: Patient is a 34 year old, G 2 now P 2 now? admitted on 09/18/24 at 40 Weeks gestation for induction of labor.? She had an uncomplicated vaginal delivery.? She delivered a viable male .??The patient feels well. ?The pain is well controlled with current medications. ?She has no new complaints. ?She is breast feeding and reports things are going [well]. the patient has done well.? Vitals have been stable.? She has remained afebrile.? Has a good appetite, is tolerating a general diet. ?She is voiding without difficulty.? She is passing gas and has not had a bowel movement.? She is ambulating and denies any dizziness.? Has small amount of rubra lochia. Problems: Anemia Discharge home with baby.? Follow up in 2 weeks and 6 weeks.? , may see if needed? Hgb 9.9. Iron supplement ordered orally every other day? For pain control of perineum, breast and pelvic pain, take 600 mg Ibuprofen every 6 hours as needed by mouth or 1000 mg acetaminophen (Tylenol) every 6 hours by mouth as needed. You can alternate these so you are taking something every 3 hours as needed. A heating pad can also be used for your abdomen or breasts. You may also take docusate sodium up to twice daily to soften your stools and help to prevent constipation. You may wean off of it when your stools return to normal.? Peripartum Data Infant delivery method: Vaginal Laceration description: Perineal - 2nd Degree complications: none [place] Infant Gender: Male Infant Discharge Plan: Home Status at Discharge Functional status at discharge: independent ambulation Overall status at discharge: patient is progressing back to baseline Time Spent with Patient Time attestation: Total time spent providing and/or coordinating discharge services: Time spent: Less than 30 minutes Discharge Plan Discharge Disposition: Home, Self-Care Date of Admission: 09/18/24 16:38 Attending Provider on Discharge: Brooke Larson Primary Care Provider: Rashmi Drummond Condition: Stable Anticipated Discharge Date/Time: 09/20/24 08:19 Discharge Medications: New docusate sodium 100 mg Capsule 100 mg PO DAILY Qty: 30 0RF acetaminophen 500 mg Tablet 1,000 mg PO Q6H PRNQty: 60 0RF ibuprofen 600 mg Tablet 600 mg PO Q6H PRNQty: 60 0RF Continued albuterol sulfate 90 mcg/actuation HFA aerosol inhaler 2 inh inhalation .prn PRN cephalexin 250 mg capsule 250 mg PO .Once as needed PRN Rx Instructions: For postcoital use only. DHA 200 mg capsule 100 mg PO DAILY Discharge Orders: Discharge Order (Routine); Ordered 09/20/24 Ordered By: Brooke Larson Patient Education: OB Over the Counter Medication Information, OB Vaginal/Breast Feeding Additional Instructions: Discharge instructions were reviewed with the patient including signs and symptoms of infection and home going medications Nothing vaginally for 6 weeks: no tampons or intercourse Off Work or School for 6 weeks Symptoms to report to doctor: * Bleeding that saturates more than one pad per hour * Passing clots larger than the size of a golf ball * Pain not relieved by prescribed medication * Fever above 100.4 degrees Fahrenheit * A foul vaginal odor * Difficulty in emotions, mood, and functions * Thoughts of hurting yourself and/or * Painful, reddened area in your breast * Any drainage, redness, or tenderness in your IV/epidural site * Severe headache that doesn't improve after taking medications * Changes in vision, including temporary loss of vision, blurred vision, and/or light sensitivity * Upper abdominal pain (usually under ribs on the right side) * Decrease in urination or painful, frequent urinating * Chest pain * Shortness of breath * Tenderness or pain with redness and/swelling in the calf(s) of your leg 2-week visit: discuss infant feeding concerns, review control options and screen for anxiety/depression. 6-week visit for an annual exam. consultation services are available to all mothers and babies for the first year after delivery.? To make an appointment, please call [phone]. Activity Level: No Restrictions and Activity as Tolerated Discharge Diet: Regular Follow Up Appointments: [facility] [Provider Group] Forms: MyHealth Info Instructions Discharge Comments: Patient was discharged in stable condition.
[2024-09-20 08:21] VITALS: BP 109/47; PULSE 59; RESP 16; TEMP 36.4; O2SAT 97
--- NOTE | 2024-09-20 10:31 | PC.SOCIAL ---
Social Service Consult: SW spoke with patient's nurse to determine reason for consult. RN was uncertain, but thought it could be due to elective induction being pushed for a few days. SW met with patient and patient's partner who expressed they are doing well and understood the need for the induction to be pushed. Patient reports no questions or concern at this time.
== END 2024-09-20 11:12 | disposition home or self-care (01) | DRG 560 ==
PROVIDERS: Admitting Provider Obstetrics & Gynecology; PCP Family Medicine; Visit Provider Obstetrics & Gynecology
DX: O70.1 Second degree perineal laceration during delivery (principal); O90.81 Anemia of the puerperium; D62 Acute posthemorrhagic anemia; Z3A.40 40 weeks gestation of pregnancy; Z37.0 Single live birth
CPT/HCPCS: 01967; 36415; 59200; 85018; 85025; 86592; 86850; 86900; 86901; A9270; J0665; J2405; J2795; J7120